=== PATIENT | male | born 1960 | race Caucasian/White ===

== ENCOUNTER 2017-05-01 10:55 | Emergency (ER) | payer MEDICAID ==
[~2017-05-01] VITALS: Ht 172.7 cm; Wt 73.5 kg
[~2017-05-01 10:55] MED LIST: LEVA750T PO
[2017-05-01 10:56] VITALS: BP 147/83; PULSE 110; RESP 18; TEMP 97.8; O2SAT 100
[2017-05-01] MEDS ORDERED: methylPREDNISolone SOD SUCC 125 MG/2 ML VIAL IV PUSH ONE (11:15)
[2017-05-01] MEDS ORDERED: MEGE1SUS10 PO (11:17)
[2017-05-01] MEDS: RESP: ALBUTEROL 2.5 MG/IPRATROPIUM 0.5 MG NEB (SCH) INH ×2 (11:28→11:29)
--- NOTE | 2017-05-01 11:36 | RADRPT ---
EXAM DATE/TIME: 05/01/2017 11:16 [facility] COMPARISON: CHEST PA & LAT, September 06, 2014, 14:21. INDICATIONS : Cough. Right upper chest pain. History of lung CA. MEDICAL HISTORY : Chronic obstructive pulmonary disease. Lung CA with mets. Smoker. Chemotherapy. SURGICAL HISTORY : None. ENCOUNTER: Initial ACUITY: 1 day PAIN SCORE: 8/10 LOCATION: Right upper chest FINDINGS: PA and lateral views of the chest demonstrate new complete volume loss in the right upper lobe with a suggestion of a right suprahilar mass. CT chest is recommended with contrast on an outpatient basis. There some scarring in the AP window and left suprahilar region likely related to radiation therapy change. Continued retraction of the left hemidiaphragm superiorly. The cardiomediastinal contours ar e unremarkable. Osseous structures are intact. CONCLUSION: Complete opacification and volume loss of the right upper lobe with likely right suprahilar mass. [facility] CT with contrast is recommended. Catalino Tierney MD on May 01, 2017 at 11:33 Board Certified Radiologist. This report was verified electronically.
[2017-05-01 11:41] VITALS: BP 119/73; PULSE 110; RESP 18; O2SAT 99
[2017-05-01 11:44] LABS: AUTOMATED NEUTROPHIL # 7.9 TH/MM3 (1.8-7.7); BASOPHIL # 0.1 TH/MM3 (0-0.2); BASOPHIL % 0.7 % (0.0-2.0); EOSINOPHIL # 0.2 TH/MM3 (0-0.4); EOSINOPHIL % 2.1 % (0.0-4.0); HEMATOCRIT 38.4 % (39.0-51.0); HEMOGLOBIN 12.5 GM/DL (13.0-17.0); LYMPH % 12.6 % (9.0-44.0); LYMPHOCYTE # 1.3 TH/MM3 (1.0-4.8); MEAN CORPUSCULAR HEMOGLOBIN 28.7 PG (27.0-34.0); MEAN CORPUSCULAR HGB CONC 32.6 % (32.0-36.0); MEAN PLATELET VOLUME 7.9 FL (7.0-11.0); MONO % 6.5 % (0.0-8.0); MONOCYTE # 0.7 TH/MM3 (0-0.9); NEUT % 78.1 % (16.0-70.0); PLATELET COUNT 405 TH/MM3 (150-450); RED BLOOD COUNT 4.37 MIL/MM3 (4.50-5.90); RED CELL DISTRIBUTION WIDTH 13.3 % (11.6-17.2); WHITE BLOOD COUNT 10.2 TH/MM3 (4.0-11.0)
--- NOTE | 2017-05-01 11:46 | PD ---
HPI Chief Complaint: Respiratory Symptoms Time Seen by Provider: 11:04 Travel History International Travel<30 days: No Contact w/Intl Traveler<30days: No Traveled to known affect area: No History of Present Illness HPI This is a 56-year-old male with a history of lung cancer and COPD who presents for dyspnea. He states that over the last 3-4 days, he has developed a productive cough and dyspnea. Aggravated by exertion. He complains of pain at the right upper back. No focal weakness, numbness, tingling, saddle paresthesias, bowel or bladder dysfunction. No fever, chills. No anterior chest pain. No vomiting or diarrhea. His last chemo was 1 week ago. Patient does continue to smoke cigarettes. Symptoms are mild to moderate in severity. Onset gradual. Prior treatment includes his current home inhalers. These gave him partial relief. PFSH Past Medical History Hx Anticoagulant Therapy: Yes (asa) Chemotherapy: Yes (1 week ago) COPD: Yes Diminished Hearing: No Respiratory: Yes (copd, lung ca with mets) Immunizations Current: Yes Influenza Vaccination: Yes Social History Alcohol Use: No Tobacco Use: Yes (1 PPD) Substance Use: No Allergies-Medications (Allergen,Severity, Reaction): Coded Allergies: No Known Allergies (Verified Adverse Reaction, Unknown, 05/01/17) Reported Meds & Prescriptions Reported Meds & Active Scripts Active Levaquin (Levofloxacin) 750 Mg Tablet 750 Mg PO DAILY 7 Days Prednisone 20 Mg Tab 60 Mg PO DAILY 5 Days Reported Megestrol ES Liq 625 Mg/5 Ml Susp 0 PO DAILY Review of Systems Except as stated in HPI: all other systems reviewed are Neg Physical Exam Narrative GENERAL: Alert, well nourished, well appearing patient resting on the bed in no acute distress. Vital Signs reviewed SKIN: Focused skin assessment warm/dry. HEAD: Atraumatic. Normocephalic. EYES: Pupils equal and round. No scleral icterus. No injection or drainage. ENT: No nasal bleeding or discharge. Mucous membranes pink and moist. NECK: Trachea midline. No JVD. Spontaneous, painless full range of motion with no meningismus. No midline posterior neck pain. CARDIOVASCULAR: Regular rate and rhythm. No murmur appreciated. Extremities warm and well perfused with bounding peripheral pulses RESPIRATORY: No accessory muscle use. Diffuse bilateral expiratory wheezes. Diminished in RUL. . Breathing easily and speaking in full sentences GASTROINTESTINAL: Abdomen soft, non-tender, nondistended. Normal bowel sounds. No rigid, rebound, guarding MUSCULOSKELETAL: No obvious deformities. No clubbing. No cyanosis. No edema. Compartments are soft. No tenderness to palpation along thoracic or lumbar spine NEUROLOGICAL: Awake and alert. No obvious cranial nerve deficits. Motor grossly within normal limits. Normal speech. Sensation intact. Normal gait Data Data Last Documented VS Vital Signs Date Time Temp Pulse Resp B/P (MAP) Pulse Ox O2 Delivery O2 Flow Rate FiO2 05/01/17 14:17 112 18 133/88 (103) 98 05/01/17 13:02 Room Air 05/01/17 10:56 97.8 Orders Orders Complete Blood Count With Diff (05/01/17 11:12) Comprehensive Metabolic Panel (05/01/17 11:12) Prothrombin Time / Inr (Pt) (05/01/17 11:12) Act Partial Throm Time (Ptt) (05/01/17 11:12) Lactic Acid Sepsis Protocol (05/01/17 11:12) Magnesium (Mg) (05/01/17 11:12) Influenzae A/B Antigen (05/01/17 11:12) Blood Culture (05/01/17 11:12) Chest, Pa & Lat (05/01/17 11:12) Ecg Monitoring (05/01/17 11:12) Iv Access Insert/Monitor (05/01/17 11:12) Oximetry (05/01/17 11:12) Electrocardiogram (05/01/17 11:12) Methylprednisolone So Succ Inj (Solumedr (05/01/17 11:15) Albuterol-Ipratropium Neb (Duoneb Neb) (05/01/17 11:15) Ct Pulmonary Angiogram (05/01/17 12:02) Iohexol 350 Inj (Omnipaque 350 Inj) (05/01/17 12:38) Labs Laboratory Tests Test 05/01/17 11:25 White Blood Count 10.2 TH/MM3 Red Blood Count 4.37 MIL/MM3 Hemoglobin 12.5 GM/DL Hematocrit 38.4 % Mean Corpuscular Volume 88.0 FL Mean Corpuscular Hemoglobin 28.7 PG Mean Corpuscular Hemoglobin Concent 32.6 % Red Cell Distribution Width 13.3 % Platelet Count 405 TH/MM3 Mean Platelet Volume 7.9 FL Neutrophils (%) (Auto) 78.1 % Lymphocytes (%) (Auto) 12.6 % Monocytes (%) (Auto) 6.5 % Eosinophils (%) (Auto) 2.1 % Basophils (%) (Auto) 0.7 % Neutrophils # (Auto) 7.9 TH/MM3 Lymphocytes # (Auto) 1.3 TH/MM3 Monocytes # (Auto) 0.7 TH/MM3 Eosinophils # (Auto) 0.2 TH/MM3 Basophils # (Auto) 0.1 TH/MM3 CBC Comment DIFF FINAL Differential Comment Prothrombin Time 10.5 SEC Prothromb Time International Ratio 1.0 RATIO Activated Partial Thromboplast Time 27.6 SEC Blood Urea Nitrogen 20 MG/DL Creatinine 1.00 MG/DL Random Glucose 90 MG/DL Total Protein 8.0 GM/DL Albumin 3.4 GM/DL Calcium Level 9.1 MG/DL Magnesium Level 2.1 MG/DL Alkaline Phosphatase 67 U/L Aspartate Amino Transf (AST/SGOT) 12 U/L Alanine Aminotransferase (ALT/SGPT) 10 U/L Total Bilirubin 0.4 MG/DL Sodium Level 140 MEQ/L Potassium Level 3.9 MEQ/L Chloride Level 106 MEQ/L Carbon Dioxide Level 27.2 MEQ/L Anion Gap 7 MEQ/L Estimat Glomerular Filtration Rate 77 ML/MIN Lactic Acid Level 1.3 mmol/L MDM Medical Decision Making Medical Screen Exam Complete: Yes Emergency Medical Condition: Yes Medical Record Reviewed: Yes Interpretation(s) EKG shows sinus tachycardia with a rate of 106. No acute ST elevation Last [address] Angiography 05/01/17 1202 Signed Impressions: Service Date/Time: May 12:31 - CONCLUSION: 1. No evidence of acute pulmonary embolism. 2. 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 3. Collapsed right upper lobe which may be chronic. 4. Extensive post radiation changes in the mediastinum which includes paramediastinal soft tissue thickening at pleural thickening. Without prior studies to ensure stability persistent or recurrent neoplasm cannot be excluded. Arnaud Hillman MD ADDENDUM: A comparison CT scan of the chest dated 03/12/2017 has become available for comparison. The collapse of the right upper lobe and right paratracheal soft tissue have developed since the previous exam. Right upper lobe bronchus obstruction from either encasement or endobronchial occlusion is likely the cause of the lung collapse. Arnaud Hillman MD Chest X-Ray 05/01/17 1112 Signed Impressions: Service Date/Time: May 11:16 - CONCLUSION: Complete opacification and volume loss of the right upper lobe with likely right suprahilar mass. Chest CT with contrast is recommended. Catalino Tierney MD Laboratory Tests Test 05/01/17 11:25 White Blood Count 10.2 TH/MM3 Red Blood Count 4.37 MIL/MM3 Hemoglobin 12.5 GM/DL Hematocrit 38.4 % Mean Corpuscular Volume 88.0 FL Mean Corpuscular Hemoglobin 28.7 PG Mean Corpuscular Hemoglobin Concent 32.6 % Red Cell Distribution Width 13.3 % Platelet Count 405 TH/MM3 Mean Platelet Volume 7.9 FL Neutrophils (%) (Auto) 78.1 % Lymphocytes (%) (Auto) 12.6 % Monocytes (%) (Auto) 6.5 % Eosinophils (%) (Auto) 2.1 % Basophils (%) (Auto) 0.7 % Neutrophils # (Auto) 7.9 TH/MM3 Lymphocytes # (Auto) 1.3 TH/MM3 Monocytes # (Auto) 0.7 TH/MM3 Eosinophils # (Auto) 0.2 TH/MM3 Basophils # (Auto) 0.1 TH/MM3 CBC Comment DIFF FINAL Differential Comment Prothrombin Time 10.5 SEC Prothromb Time International Ratio 1.0 RATIO Activated Partial Thromboplast Time 27.6 SEC Blood Urea Nitrogen 20 MG/DL Creatinine 1.00 MG/DL Random Glucose 90 MG/DL Total Protein 8.0 GM/DL Albumin 3.4 GM/DL Calcium Level 9.1 MG/DL Magnesium Level 2.1 MG/DL Alkaline Phosphatase 67 U/L Aspartate Amino Transf (AST/SGOT) 12 U/L Alanine Aminotransferase (ALT/SGPT) 10 U/L Total Bilirubin 0.4 MG/DL Sodium Level 140 MEQ/L Potassium Level 3.9 MEQ/L Chloride Level 106 MEQ/L Carbon Dioxide Level 27.2 MEQ/L Anion Gap 7 MEQ/L Estimat Glomerular Filtration Rate 77 ML/MIN Lactic Acid Level 1.3 mmol/L Differential Diagnosis COPD exacerbation, progression of cancer, pneumonia, bronchitis Narrative Course IV access was established. Labs, imaging were performed. Patient was given Solu-Medrol and duo nebs with improvement in his breathing. I spoke with the reading radiologist and patient appears to have new bronchial occlusion from his last imaging about 4 months ago. I spoke with the on-call airplane mechanic who recommends that I speak with the patient's oncologist. I spoke with the patient's oncologist, Dr. Carpenter regarding the patient's symptoms, lab and imaging findings. He states that this is due to cancer progression. He states that if the patient is feeling better and not requiring supplemental oxygen, he can be discharged. He agrees with plan for prednisone and prophylactic Levaquin. He was see the patient in his office tomorrow. They will need to discuss possible treatment change. The patient's overall prognosis is poor unfortunately. I had multiple long discussions with the patient and his . The patient was very eager to be discharged and preferred not to be admitted. He stated that he was feeling better. He is speaking in full sentences and is ambulatory without dyspnea. We discussed the changes in his imaging. They will call the oncologist office today to arrange the close follow-up. They understand very strict return indications. They are comfortable with this plan. Diagnosis Primary Impression: Bronchial obstruction Additional Impression: COPD exacerbation Referrals: Oncologist 1 day Patient Instructions: COPD (Chronic Obstructive Pulmonary Disease) (ED), General Instructions, Lung Cancer (DC) Additional Instructions: Take prednisone as directed starting tomorrow. Take antibiotics as directed starting today. Continue home inhalers. Follow-up with your oncologist, Dr. Carpenter within the next 1-4 days. Call today to make the appointment. Return with worsening symptoms. Med/Other Pt SpecificInfo: Prescription(s) given Scripts Levofloxacin (Levaquin) 750 Mg Tablet 750 MG PO DAILY for Infection for 7 Days, #7 TAB 0 Refills Prov: Kimber Whitlock MD 05/01/17 Prednisone (Prednisone) 20 Mg Tab 60 MG PO DAILY for 5 Days, #15 TAB 0 Refills Prov: Kimber Whitlock MD 05/01/17 Disposition: 01 DISCHARGE HOME Condition: Stable Kimber Whitlock MD May 01, 2017 11:46
[2017-05-01 11:53] LABS: CHLORIDE 106 MEQ/L (98-107); SODIUM (NA) 140 MEQ/L (136-145)
[2017-05-01 11:56] LABS: ALBUMIN 3.4 GM/DL (3.4-5.0); BICARBONATE 27.2 MEQ/L (21.0-32.0); CALCIUM 9.1 MG/DL (8.5-10.1)
[2017-05-01 11:57] LABS: BLOOD UREA NITROGEN 20 MG/DL (7-18); GLUCOSE,RANDOM 90 MG/DL (74-106); MAGNESIUM 2.1 MG/DL (1.5-2.5)
[2017-05-01 11:59] LABS: ALT (GPT) 10 U/L (12-78)
[2017-05-01 12:00] LABS: AST (GOT) 12 U/L (15-37); GLOMERULAR FILTRATION RATE 77 ML/MIN (>89)
[2017-05-01 12:01] LABS: TOTAL BILIRUBIN ADULT 0.4 MG/DL (0.2-1.0)
[2017-05-01 12:02] LABS: ALKALINE PHOSPHATASE 67 U/L (45-117)
[2017-05-01 12:17] LABS: PROTHROMBIN TIME - PATIENT 10.5 SEC (9.8-11.6)
[2017-05-01] MEDS ORDERED: IOHEXOL 350 MG/ML 10 ML VIAL (for RAD DIAG) IVCONTRAST ONE (12:38)
--- NOTE | 2017-05-01 12:58 | RADRPT ---
EXAM DATE/TIME: 05/01/2017 12:31 This report includes an Addendum and supersedes previous reports for this exam. [facility] COMPARISON: CHEST PA & LAT, May 01, 2017, 11:16. CT PULMONARY ANGIOGRAM, September 06, 2014, 17:28. INDICATIONS : Dyspnea. Right upper back pain. IV CONTRAST: 75 cc Omnipaque 350 (iohexol) IV RADIATION DOSE: 12.39 CTDIvol (mGy) MEDICAL HISTORY : Carcinoma, lung. Chronic obstructive pulmonary disease. SURGICAL HISTORY : None. ENCOUNTER: Initial ACUITY: 1 week PAIN SCALE: 8/10 LOCATION: Right upper chest TECHNIQUE: Volumetric scanning of the chest was performed using a pulmonary embolism protocol MIP images were re constructed. Using automated exposure control and adjustment of the mA and/or kV according to patien t size, radiation dose was kept as low as reasonably achievable to obtain optimal diagnostic quality images. DICOM format image data is available electronically for review and comparison. Follow-up recommendations for detected pulmonary nodules are based at a minimum on nodule size and pa tient risk factors according to Fleischner Society Guidelines. FINDINGS: PULMONARY ARTERIES: No filling defects are seen in the pulmonary arteries through the segmental level. Focal narrowing is identified in the left main pulmonary artery. Patient has a prior history of a left hilar mass causi ng encasement of the vessel. This appears to represent residual stenosis. LUNGS: Chronic collapse of the right upper lobe is identified. There is extensive left paramediastinal soft tissue with associated pleural thickening. PLEURAE: Significant pleural thickening is identified in the left hemithorax extending from approximately the carinal region superiorly to the apex. MEDIASTINUM: Soft tissue is identified in the right paratracheal region and aortopulmonary window. This may scarri ng from previous radiation treatment. Recurrent or persistent neoplasm would be difficult to exclude. MUSCULOSKELETAL: Within normal limits for patient age. MISCELLANEOUS: The visualized upper abdominal organs demonstrate no acute abnormality. CONCLUSION: 1. No evidence of acute pulmonary embolism. 2. 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 3. Collapsed right upper lobe which may be chronic. 4. Extensive post radiation changes in the mediastinum which includes paramediastinal soft tissue thi ckening at pleural thickening. Without prior studies to ensure stability persistent or recurrent neop lasm cannot be excluded. Arnaud Hillman MD on May 01, 2017 at 12:48 Board Certified Radiologist. This report was verified electronically. ADDENDUM: A comparison CT scan of the chest dated 03/12/2017 has become available for comparison. The collapse o f the right upper lobe and right paratracheal soft tissue have developed since the previous exam. Rig ht upper lobe bronchus obstruction from either encasement or endobronchial occlusion is likely the ca use of the lung collapse. Arnaud Hillman MD on May 01, 2017 at 13:28 Board Certified Radiologist. This report was verified electronically.
[2017-05-01 13:02] VITALS: BP 147/70; PULSE 110; RESP 18; O2SAT 97
[2017-05-01] MEDS ORDERED: PRED20 PO (14:12)
[2017-05-01] MEDS ORDERED: LEVA750T9 PO (14:12)
[2017-05-01 14:17] VITALS: BP 133/88
--- NOTE | 2017-05-02 12:07 | EKG ---
Date Performed: 05/01/2017 Time Performed: 11:19:14 PTAGE: 56 years EKG: SINUS TACHYCARDIA WITH SHORT IL INTERVAL ABNORMAL RHYTHM ECG PREVIOUS TRACING : 09/06/2014 14.58 When compared to the prior EKG, the patient is now tachycar dic. DOCTOR: Suyapa Veras Interpretating Date/Time 05/02/2017 12:05:30
== END 2017-05-01 14:25 | disposition home or self-care (01) ==
LOC: PHED 10:55
DX: J98.09 Other diseases of bronchus, not elsewhere classified (principal); J44.1 Chronic obstructive pulmonary disease with (acute) exacerbation; R00.0 Tachycardia, unspecified; C34.90 Malignant neoplasm of unspecified part of unspecified bronchus or lung; C79.9 Secondary malignant neoplasm of unspecified site; F17.210 Nicotine dependence, cigarettes, uncomplicated; Z79.82 Long term (current) use of aspirin
CPT/HCPCS: 71046; 71275; 80053; 83605; 83735; 85025; 85610; 85730; 87040; 87804; 93005; 94640; 94664; 96374; 99285; J2930; Q9967